=== PATIENT | male | born 1945 | race African-American/Black ===

== ENCOUNTER → 2017-08-01 | Outpatient (REF) | payer MEDICARE, OTHER ==
[~2017-08-01] MED LIST: /PANT40TA; /THIA10TA; ALPHAGAN OU; AMLO10TA; AMLO10TAB OR; ANTI25TA; BRIMONIDINE TARTRATE; CEPH500C OR; CLINDAMYCIN; CLOTRIMAZOLE CREAM TD; DYAZ37.5; FLAG500T; FOLI1TAB; FOLI1TAB OR; HCTZ/TRIAMTERENE OR; HYDR25TA6; HYDR25TA6 OR; HYDR50TA8; HYDR50TA8 OR; HYPROMELLOSE; K-LO20PO; LISI20TA5; LISI40TA; LISI40TA OR; LORA1TAB OR; MAGN500T2; MECL25TA2; MECL25TA2 OR; MEGA40SU; MEGESTROL ACETATE; MEGESTROL PO; NICO21DI4; OMEP20TA7; OMEP20TA7 OR; SIMV20TA2 OR; SIMV40TA2; SULFAMETHOXAZOLE OR; TENO50TA; TIMO0.5S3 OU; TIMOLOL MALEATE; TRAVATAN 0.004%; TRIMETHOPRIM OR; [UNRECOGNIZED DRUG - OTHER]; [UNRECOGNIZED DRUG - OTHER] OD
[2017-08-01 12:43] LABS: INR 0.95
== END ==
LOC: M LAB REF 12:12
PROVIDERS: ATTEND Internal Medicine Medical Oncology
DX: C34.90 Malignant neoplasm of unspecified part of unspecified bronchus or lung (principal)

== ENCOUNTER → 2017-08-05 | Outpatient (CLI) | payer OTHER ==
--- NOTE | 2017-08-08 07:08 | RADONC ---
RADIATION ONCOLOGY PROGRESS NOTE DATE: 08/05/2017 CHART NUMBER: [id number] Mr. Wang had been scheduled for consultation in our department today. Unfortunately, he arrived and we do not have any copies of his actual scans. We have no imaging whatsoever. In addition, we do not have any pulmonary function tests at this time. In light of the fact that I do not have all the information necessary, I do not feel I can appropriately advise this patient in an appropriate consultation. Therefore, we are requesting once again the CD of all his imaging studies, including the recent PET scans and other workup. In addition, I have ordered pulmonary functions to be undertaken as well as a differential lung scan. I have contacted the patient's medical oncologist and set him up for discussion at the multi disciplinary tumor conference next Friday. We will be seeing the patient back in consultation following these studies and tumor board discussion. Consultation and recommendations can be appropriately made at that time. That way the patient is not unnecessarily delayed.
== END ==
LOC: M ONCR 13:43
PROVIDERS: ATTEND Radiology Radiation Oncology
DX: C34.90 Malignant neoplasm of unspecified part of unspecified bronchus or lung (principal)

== ENCOUNTER → 2017-08-07 | Outpatient (CLI) | payer OTHER ==
--- NOTE | 2017-08-07 09:00 | REP ---
Clinical: History of lung cancer. Technique: PA and lateral. Comparison: 04/24/2015. Findings: Mediastinum and cardiac silhouette are stable. Postsurgical changes of bilateral virgilio again noted. Surgical suture material is identified in the right upper lung zone. The lung palomo demonstrate mild oligemia and hyperinflation which may be related to underlying COPD. No acute consolidation, effusion or pneumothorax. Skeletal structures are intact. Impression: Chronic-appearing changes. Cannot exclude mild COPD. No obvious acute cardiopulmonary process appreciated. Signed by Willie Godinez MD 08/07/2017 08:51 A
--- NOTE | 2017-08-07 10:21 | REP ---
NUCLEAR LUNG DIFFERENTIAL PERFUSION AND VENTILATION SCAN: Following the intravenous administration of 1 millicurie technetium 99m tagged MAA and the inhalation of 2 millicuries technetium 99m DTPA aerosol, images of the lungs are obtained in the anterior and posterior projections. There is an area posteriorly in the left lower lobe which demonstrates ventilation but no perfusion. Otherwise, there is a matching defect in the right upper lobe. Differential counts were obtained in the upper, middle and lower thirds of the lungs. The main perfusion of the left lung is 36.3% and of the right lung is 63.7%. The mean ventilation of the left lung is 43.5% and of the right lung is 56.5%. Signed by Pako Santizo MD 08/07/2017 04:53 P
== END ==
LOC: M RAD 08:30
PROVIDERS: ATTEND Radiology Radiation Oncology
DX: Z08 Encounter for follow-up examination after completed treatment for malignant neoplasm (principal); R91.8 Other nonspecific abnormal finding of lung field
CPT/HCPCS: 71020; 78598; A9540; A9567

== ENCOUNTER → 2017-08-18 | Outpatient (CLI) | payer OTHER ==
--- NOTE | 2017-08-18 14:20 | PFTRPT ---
Tech: Elzbieta ESTRADAVAL Age: 72 Sex: Male Race: Black Height: 71.00 Inches Weight: 109.00 Lbs BSA: 1.63 Diagnosis: LUNG CA TECH NOTES: The test appears to be valid, although the ATS standard for "end of test" was not met. The patient was unable to maintain a pant frequency of 60 breaths per minute during the lung volume measurements. The patient was also unable to maintain a pant frequency of 60 to 90 breaths per minute during the airway resistance measurement. The patient was given four puffs of albuterol for postbronchodilator. IVC is less than 85% of VC. DLCO may be underestimated. PULMONARY FUNCTION TESTING ORDERING PROVIDER: Pako Ku MD DATE OF SERVICE: 08/18/17 SPIROMETRY: Pre and post bronchodilator study of excellent technical quality. The forced vital capacity is reduced. The FEV1 is out of proportion. The obstructive index is, therefore, reduced. FLOW VOLUME LOOP: The expiratory limb of the flow volume loop does suggest significant flow rate limitation. No significant bronchodilator response is identified. LUNG VOLUMES: The total lung capacity is normal. The residual volume is generally in proportion. DIFFUSION CAPACITY: The diffusion capacity is significantly reduced, but is appropriate for alveolar volume. HEMOGLOBIN: No hemoglobin is available for correction. AIRWAY MECHANICS: Airway resistance and conductance are normal IMPRESSION: At least mild obstructive ventilatory impairment with a degree of air trapping. Diffusion capacity impairment. Please correlate clinically. MTDD
== END ==
LOC: M CARPUL 13:35
PROVIDERS: ATTEND Radiology Radiation Oncology
DX: C34.90 Malignant neoplasm of unspecified part of unspecified bronchus or lung (principal); Z88.8 Allergy status to other drugs, medicaments and biological substances

== ENCOUNTER → 2017-08-20 | Outpatient (CLI) | payer OTHER ==
--- NOTE | 2017-08-21 09:20 | RADONC ---
RADIATION ONCOLOGY FOLLOWUP NOTE DATE: 08/20/2017 CHART NUMBER: [id number] DIAGNOSIS: Lung cancer. STAGE: Stage IV, metastatic. ECOG PERFORMANCE STATUS: 3. FOLLOWUP NOTE: Mr. Wang is a very pleasant 72-year-old black male with the diagnosis of what appears to be metastatic adenocarcinoma of the lung who initially presented to us on 08/05/2017 for discussion of external beam radiation therapy as a therapeutic option. Initially, the patient was sent to us for consideration of chemoradiation. Apparently at that time, it was not known that his PET scan showed metastatic disease to bone. Prior to his visit to us, he had undergone a biopsy of his iliac crest and pathology revealed an adenocarcinoma. He has been seen by Dr. Cho our medical oncologist and is scheduled to begin systemic therapy. He is now presenting for further discussion with us. REVIEW OF SYSTEMS: The patient's review of systems are positive for physical limitations secondary to his amputation. Denies nausea, vomiting, fevers, chills, night sweats, diplopia, headaches, anxiety or depression, anorexia, weight loss, visual disturbances, chest pain, urinary or bowel difficulties, bone pain, or neurological problems.. PHYSICAL EXAMINATION: The patient is a thin black male in no acute distress. HEENT: Exam is normocephalic, atraumatic. Extraocular movements are intact. There are no palpable cervical, supraclavicular, infraclavicular or axillary lymphadenopathy present. His lungs are generally clear to auscultation and percussion. His heart has a regular rate and rhythm. His abdomen is benign with no hepatosplenomegaly, masses or tenderness. The patient is presenting in a wheelchair and is an amputee. He is neurologically intact to sensory and motor. ASSESSMENT: The patient is presenting to us today with what appears to be metastatic stage IV adenocarcinoma of the lung. He is scheduled to begin systemic therapy in the next couple of weeks. Further tests are being undertaken on his pathology sample. He is scheduled for placement of a chemotherapy port later today. In light of the fact that he will be receiving systemic therapy, I have set him up to see us again in 3 months for further followup. I had ordered a differential lung scan and pulmonary function tests. Both do indicate that the patient would be able to tolerate radiation to his lung mass. I have reviewed the PET scan and I do believe we can treat that in the future should he develop symptoms or should chemotherapy fail to work. As mentioned above, we have set him up to be seen by us again in three months' time. He has also been instructed to contact our office if we could be of any assistance in the meantime. I defer to Dr. Cho's expert advice with regards to his overall systemic care. cc: Jaimie Cho MD, FACP
== END ==
LOC: M ONCR 13:02
PROVIDERS: ATTEND Radiology Radiation Oncology
DX: C34.02 Malignant neoplasm of left main bronchus (principal); C79.51 Secondary malignant neoplasm of bone

== ENCOUNTER → 2017-08-20 | Outpatient (CLI) | payer OTHER ==
[~2017-08-20] MED LIST changes: +LIDOCAINE 2% MDV 20 ML VIAL As Ordered ONE; +ceFAZolin 1GM INJ (J0690 PER 500MG) As Ordered ONE
--- NOTE | 2017-09-10 09:20 | REPIR ---
DATE OF PROCEDURE: 08/20/2017 PREPROCEDURE DIAGNOSIS: Lung cancer with metastases to the bone requiring access for chemotherapy. POSTPROCEDURE DIAGNOSIS: Lung cancer with metastases to the bone requiring access for chemotherapy. PROCEDURE: Ultrasound and fluoroscopic guided right internal jugular vein Port-a-Cath placement with a smart port. SURGEON: Dr. Mike Pavon. ORACLE ADF DEVELOPER: Nancy Miller and Horace Fonseca. ANESTHESIA: Local with 20 mL of 2% lidocaine. ESTIMATED BLOOD LOSS: FLUORO TIME: 2.222 minutes. CONTRAST: None. ANCEF: 1 gram IV preoperatively. COMPLICATIONS: None. DRAINS: None. SPECIMENS: None. IMPLANTS: Right internal jugular vein tunneled Port-a Cath with a smart port. INDICATION: The patient is a 72-year-old male with lung cancer which has metastasized to the bone and the patient requires access for chemotherapy. Patient will undergo a right, possible left internal jugular vein Port-a-Cath placement. Risks, benefits and alternative treatment options have been discussed with the patient. PROCEDURE: The patient was taken to the angiography suite and placed supine on the angiography room table and then prepped and draped in a standard surgical fashion. The right internal jugular vein was evaluated with ultrasound and noted to be easily compressible, widely patent and free of thrombus, and then ultrasound was used to guide cannulation with real-time concurrent visualization of the entry of the micropuncture needle into the right internal jugular vein. The micropuncture wire was advanced through the micropuncture needle which was upsized to a micropuncture sheath. A J wire was advanced through the micropuncture sheath which was used to sequentially dilate the right internal jugular vein under fluoroscopic guidance and place an introducer sheath. The catheter was tunneled from an incision in the right chest to the puncture wound in the right neck and advanced through the introducer sheath and positioned with the tip in the superior vena cava right atrial junction under fluoroscopic guidance. The catheter was then connected to the port and placed in the pocket created in the right chest subcutaneously. The port was aspirated and noted to aspirate easily and then flushed with heparinized saline. The incisions were then closed using #2-0 Vicryl to approximate the deeper layers of the chest wound, then #3-0 Monocryl was used to approximate the skin of the chest wound and at the neck in an inverted interrupted fashion. Steri-Strips and dressings were applied. Patient tolerated the procedure well. All instrument, sponge and needle counts were correct at the end of the case. There were no complications. Dr. Pavon was present for and directed the entire case. Patient was transferred to the holding area and subsequently discharged in stable condition. The port was stable for use for access. RADIOLOGICAL SUPERVISION INTERPRETATION: Ultrasound was used to evaluate the right internal jugular vein which was easily compressible, widely patent and free of thrombus. Ultrasound was used to guide cannulation with real-time concurrent visualization of the entry of the needle into the right internal jugular vein. Fluoroscopy was used to guide dilatation of the right internal jugular vein and placement of the catheter which was noted to be at the tip of the superior vena cava right atrial junction with no pneumo- or hemothorax noted on final fluoroscopic image.
== END | disposition home or self-care (01) ==
LOC: M IRPRO 13:15
PROVIDERS: ATTEND Surgery Vascular Surgery
DX: C34.90 Malignant neoplasm of unspecified part of unspecified bronchus or lung (principal); C79.51 Secondary malignant neoplasm of bone
CPT/HCPCS: 36561; 76937; 77001; C1788; C1894; J0690

== ENCOUNTER → 2017-11-12 | Outpatient (CLI) | payer OTHER | LOC: M ONCR 13:07 | DX: C34.02 Malignant neoplasm of left main bronchus (principal); C79.51 Secondary malignant neoplasm of bone ==

== ENCOUNTER → 2017-11-17 | Outpatient (CLI) | payer OTHER ==
[~2017-11-17] MED LIST changes: -/PANT40TA; -/THIA10TA; -ALPHAGAN OU; -AMLO10TA; -AMLO10TAB OR; -ANTI25TA; -BRIMONIDINE TARTRATE; -CEPH500C OR; -CLINDAMYCIN; -CLOTRIMAZOLE CREAM TD; -DYAZ37.5; -FLAG500T; -FOLI1TAB; -FOLI1TAB OR; +GASTROGRAFIN SOLUTION 30ML (Q9963) As Ordered; -HCTZ/TRIAMTERENE OR; -HYDR25TA6; -HYDR25TA6 OR; -HYDR50TA8; -HYDR50TA8 OR; -HYPROMELLOSE; +ISOVUE-370 76% 100ML VIAL (Q9967) As Ordered; -K-LO20PO; -LIDOCAINE 2% MDV 20 ML VIAL As Ordered ONE; -LISI20TA5; -LISI40TA; -LISI40TA OR; -LORA1TAB OR; -MAGN500T2; -MECL25TA2; -MECL25TA2 OR; -MEGA40SU; -MEGESTROL ACETATE; -MEGESTROL PO; -NICO21DI4; -OMEP20TA7; -OMEP20TA7 OR; -SIMV20TA2 OR; -SIMV40TA2; -SULFAMETHOXAZOLE OR; -TENO50TA; -TIMO0.5S3 OU; -TIMOLOL MALEATE; -TRAVATAN 0.004%; -TRIMETHOPRIM OR; -[UNRECOGNIZED DRUG - OTHER]; -[UNRECOGNIZED DRUG - OTHER] OD; -ceFAZolin 1GM INJ (J0690 PER 500MG) As Ordered ONE
== END ==
LOC: M RAD 09:09
DX: C34.90 Malignant neoplasm of unspecified part of unspecified bronchus or lung (principal); R91.8 Other nonspecific abnormal finding of lung field; R59.0 Localized enlarged lymph nodes
CPT/HCPCS: Q9963

== ENCOUNTER → 2018-01-02 | Outpatient (CLI) | payer OTHER | LOC: M RAD 15:10 | DX: C34.92 Malignant neoplasm of unspecified part of left bronchus or lung (principal) | CPT/HCPCS: Q9963 ==